=== PATIENT | female | born 1935 | race Asian ===

== ENCOUNTER 2016-08-03 13:31 | Emergency (ER) | payer MEDICARE, MEDICAID ==
[~2016-08-03] VITALS: Ht 157.5 cm; Wt 40.0 kg
[2016-08-03 13:36] VITALS: BP 140/70
== END 2016-08-03 15:12 | disposition home or self-care (01) ==
LOC: ED 14:32
DX: S43.401A Unspecified sprain of right shoulder joint, initial encounter (principal); V89.2XXA Person injured in unspecified motor-vehicle accident, traffic, initial encounter; Y93.89 Activity, other specified; Y92.89 Other specified places as the place of occurrence of the external cause; Y99.8 Other external cause status
CPT/HCPCS: 99284